=== PATIENT | male | born 2000 | race Two or more races ===

== ENCOUNTER 2025-10-12 22:17 | Emergency (ER) | payer MEDICAID, SELFPAY ==
[2025-10-12 23:05] VITALS: BP 147/82; PULSE 66; RESP 18; TEMP 36.8; O2SAT 99; BMI 27.5
--- NOTE | 2025-10-13 00:26 | PD.EDMALE ---
ED Male Genitalurinary RME/HPI General Chief complaint: Urogenital-Male Stated complaint: PAIN ON PRIVATE PARTS ITCHING Time Seen by Provider: 10/12/25 23:16 Arrival date/time: 10/12/25 22:17 25M with no significant PMH presents to ED with itching of penis for several days. There was recent new sexual contact. Patient went to PCP and had blood/urine tests done. Patient is just here because the itching is making him unable to sleep. Limitations: no limitations Related Data Previous Rx's ?Medication ?Instructions ?Recorded diphenhydramine HCl 2 % topical 1 applic topical BID PRN itching 10/12/25 gel (Itch Stopping #118 mL (diphenhydramine)) Allergies Allergy/AdvReac Type Severity Reaction Status Date / Time No Known Allergies Allergy Verified 10/12/25 22:21 Review of Systems Review of Systems Systems Reviewed: All systems reviewed, normal except as documented Genitourinary Genitourinary: Reports as per HPI and Reports other (genital itching) Past Medical History Social History SMOKING STATUS: Current every day smoker ED Exam General Limitations: Present no limitations General appearance: Present alert and in no apparent distress Head Head exam: Present atraumatic Neck Neck exam: Present normal inspection, full ROM and trachea midline Chest Chest inspection: Present normal inspection and symmetric chest wall rise Expanded Exam exam: Present erythema (around penis head) Neurological Exam Neurological exam: Present alert and oriented X3 Psychiatric Psychiatric exam: Present normal affect and normal mood Skin Skin exam: Present warm, dry, intact and normal color Course Quality Measures none Vital Signs Vital signs: Vital Signs Temperature 98.2 F 10/12/25 23:05 Pulse Rate 66 10/12/25 23:05 Respiratory Rate 18 10/12/25 23:05 Blood Pressure 147/82 H 10/12/25 23:05 Pulse Oximetry (%) 99 10/12/25 23:05 Oxygen Delivery Method Room Air 10/12/25 23:05 O2 at 99% on RA and WNLs Urogenital - Male MDM Narrative MDM Narrative:: 25M with no significant PMH presents to ED with itching of penis for several days. There was recent new sexual contact. Patient went to PCP and had blood/urine tests done. Patient is just here because the itching is making him unable to sleep. Physical exam with trash truck driver Kathyrn, customer service technician, reveals some redness around penis head area. No obvious discharge, rash, or ulcerations. Patient is afebrile, calm, and alert. Meds and marriage counselor given. Patient data External records reviewed:: None Clinical information provided by:: patient Social determinants that could affect healthcare access:: none Patient has the following chronic illnesses:: none How is presenting disease/condition affected by chronic disease/condition?: no chronic disease Evaluation data The following diagnostics were reviewed and interpreted by me:: other (specify) (none) Lab and/or radiology exams considered but not ordered:: not ordered Interpretation Summary: n/a Medications / Prescriptions Medications or Prescriptions considered but not ordered:: not ordered Medication administrations:: n/a Consultations Consultation(s) initiated? (list below): No Diagnosis Urogenital Male Differential Diagnosis: urinary tract infection, priapism, urethritis, epididymitis, genital herpes simplex, prostatitis, acute retention of urine, inguinal hernia and other (male concern for STD) Most likely diagnosis given after review of the tests above:: male concern for STD Admission Indicated Admission indicated?: not indicated Admission Request Was there a request for admission?: No Disposition Plan Disposition Plan: Discharge Discharge Attestation Discharge Attestation: The patient and all family members were given an opportunity to ask questions and understood the discharge instructions. Discharge instructions specifically effects, indications for sooner follow up or return to the emergency department, and the expected course of current diagnosis. Patient condition: Stable Discharge Plan Plan Patient Disposition: HOME (Self Care) Discharge Disposition comment: Stable Prescriptions/Referrals Prescriptions/Med Rec: New Itch Stopping(diphenhydramine) 2 % gel 1 applic topical BID PRN (Reason: itching) Qty: 118 0RF Problem List Clinical Impression: Concern about STD in male without diagnosis Patient/Caregiver Discharge Instructions Education Materials: Understanding STIs Additional Instructions: Please follow-up with PCP within 24-48 hours and return immediately if symptoms worsen. Follow-up with PCP for test results. Print Language: French Stand Alone Forms: Patient Portal Info Letter AKSHAT/ELISEO Supervising Physician OMI Supervising Physician: Dr. Prater
== END 2025-10-12 23:51 | disposition home or self-care (01) ==
LOC: SERX 10-13 03:10
PROVIDERS: Emergency Provider Emergency Medicine; PCP Family Medicine
DX: Z20.2 Contact with and (suspected) exposure to infections with a predominantly sexual mode of transmission (principal)
CPT/HCPCS: 99281

== ENCOUNTER 2025-10-27 12:08 | Emergency (ER) | payer MEDICAID, SELFPAY ==
--- NOTE | 2025-10-27 12:13 | EKG_ITS ---
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
[2025-10-27 12:18] VITALS: BP 178/94; PULSE 105; RESP 21; TEMP 36.6; O2SAT 100; BMI 27.8
[2025-10-27 12:50] LABS: Basophils # (Auto) 0.0 Thou/mm3 (0.0-0.2); Basophils % (Auto) 1 % (0-2.5); Eosinophils # (Auto) 0.1 Thou/mm3 (0.0-0.5); Eosinophils % (Auto) 1 % (0-10); Hematocrit 45.3 % (41.0-53.0); Hemoglobin 15.8 g/dL (13.5-16.0); Immature Granulocytes Auto 0.03 Thou/mm3 (0.00-0.00); Lymphocytes # (Auto) 1.3 Thou/mm3 (1.0-4.8); Lymphocytes % (Auto) 21 % (10-50); Mean Corpuscular HGB Conc 34.9 g/dl (31.0-37.0); Mean Corpuscular Hemoglobin 30.2 pg (25.0-35.0); Mean Corpuscular Volume 87 fL (80-100); Monocytes # (Auto) 0.5 Thou/mm3 (0.0-0.8); Monocytes % (Auto) 8 % (0-12); Neutrophils # (Auto) 4.3 Thou/mm3 (1.8-7.7); Neutrophils % (Auto) 69 % (37-80); Nucleated Red Blood Cell # 0.00 Thou/mm3 (0.00-0.00); Nucleated Red Blood Cell % 0 /100 WBC (0); Platelet Count 321 Thou/mm3 (140-440); RDW Standard Deviation 39.4 fL (35.1-43.9); Red Blood Count 5.24 Miln/mm3 (4.50-5.90); White Blood Count 6.2 Thou/mm3 (3.8-10.6)
[2025-10-27 13:14] LABS: Alanine Aminotransferase 51 U/L (10-49); Albumin, Serum 5.2 gm/dL (3.5-5.0); Albumin/Globulin Ratio 1.8 (1.2-2.2); Alkaline Phosphatase 79 U/L (46-116); Anion Gap 15 (7-16); Aspartate Amino Transferase 35 U/L (0-34); BUN/Creatinine Ratio 11 Ratio (12-20); Bilirubin,Total 0.6 mg/dL (0.3-1.2); Blood Urea Nitrogen 11 mg/dL (9-23); Calcium 9.5 mg/dL (8.3-10.6); Calcium (Corrected) 9.5 mg/dL (8.5-10.1); Carbon Dioxide 22.9 mMol/L (20.0-31.0); Chloride 102 mMol/L (98-107); Creatinine (Component) 1.0 mg/dL (0.6-1.3); Estimated Creatinine Clearance 112.9 mL/min (>60); Globulin 2.9 gm/dL (2.3-3.5); Glucose 173 mg/dL (74-106); Osmolality,Calculated 282 (275-295); Potassium 3.9 mMol/L (3.4-5.1); Sodium 140 mMol/L (136-145); Total Protein 8.1 gm/dL (5.7-8.2); Troponin I < 0.002 ng/mL (0.0-0.045); eGFR > 60 See Note
[2025-10-27 13:35] VITALS: BP 136/84; PULSE 79; RESP 19; O2SAT 99
[2025-10-27 13:57] LABS: Amphetamine/Methamp Scrn,U Positive (Negative); Barbiturate Screen,Urine Negative (Negative); Benzodiazepines Screen,Urine Negative (Negative); Benzoylecgonine Screen, Ur Negative (Negative); Fentanyl Screen,Urine Negative (Negative); Opiate Screen,Urine Negative (Negative); THC Screen,Urine Negative (Negative)
--- NOTE | 2025-10-27 14:11 | EDNOTE_ITS ---
ED Arrhythmia Palp. RME/HPI General Chief Complaint: Arrhythmia/Palpitations Stated Complaint: Palpitations did meth yesterday Time Seen by Provider: 10/27/25 12:18 Source: patient Arrival date/time: 10/27/25 12:08 Limitations: language barrier RIRIE / GINNY CAICEDO complaint: rapid heart beat RIRIE / HPI narrative: This patient is a 25-year-old Bulgarian-speaking only male who arrives to the ED today for evaluation of palpitations that started Hours. Patient States Symptoms Came on and Have Been Relatively Consistent. Patient States He Feels like He Has a Racing Heart. Patient's Medical History Significant for Recent Methamphetamine Use. Patient Was Initially Hypertensive, tachypneic and tachycardic. Related Data Previous Rx's ?Medication ?Instructions ?Recorded diphenhydramine HCl 2 % topical 1 applic topical BID P RN itching 10/12/25 gel (Itch Stopping #118 mL (diphenhydramine)) Allergies Allergy/AdvReac Type Severity Reaction Status Date / Time No Known Allergies Allergy Verified 10/27/25 12:11 Review of Systems Review of Systems Systems Reviewed: All systems reviewed, normal except as documented Past Medical History Past Medical History PSYCHO/SOCIAL: Positive Recreational Drug Use Social History SMOKING STATUS: Current every day smoker ED Exam General Limitations: Present language barrier General appearance: Present alert and other (Patient was in mild distress due to palpitation concerns. Patient still may be affected by methamphetamine use.) Head Head exam: Present atraumatic Eye Eye exam: Present normal appearance, PERRL and EOMI ENT ENT exam: Present normal exam, normal oropharynx and mucous membranes moist Neck Neck exam: Present normal inspection, full ROM and trachea midline Chest Chest inspection: Present normal inspection and symmetric chest wall rise Respiratory Respiratory exam: Present normal lung sounds bilaterally Cardiovascular Cardiovascular exam: Present normal rhythm, tachycardia and normal heart sounds Abdominal Exam Abdominal exam: Present soft and normal bowel sounds Extremities Exam Extremities exam: Present normal inspection and full ROM Back Exam Back exam: Present normal inspection and full ROM Neurological Exam Neurological exam: Present alert, oriented X3 and CN II-XII intact Psychiatric Psychiatric exam: Present normal affect and normal mood Skin Skin exam: Present warm, dry, intact and normal color Course Quality Measures none Orders Category Date Time Status EKG (ED ONLY) *Do not use* NOW Care 10/27/25 12:13 Completed EKG (ED Only) Stat Exams 10/27/25 12:13 Draft CBC Stat Lab 10/27/25 12:30 Completed CMP [Comprehensive Metabolic Panel] Stat Lab 10/27/25 12:30 Completed Drug Screen,Urine Stat Lab 10/27/25 12:56 Completed Troponin I Stat Lab 10/27/25 12:30 Completed Ketorolac Inj [Toradol Inj] Med 10/27/25 12:18 Discontinued 30 mg IM X1 ONE Vital Signs Vital signs: Vital Signs Temperature 97.8 F 10/27/25 12:18 Pulse Rate 105 H 10/27/25 12:18 Respiratory Rate 21 H 10/27/25 12:18 Blood Pressure 178/94 H 10/27/25 12:18 Pulse Oximetry (%) 100 10/27/25 12:18 Oxygen Delivery Method Room Air 10/27/25 12:18 Arrhythmia/Palpitations MDM Narrative MDM Narrative:: All studies performed the ED were evaluated by me personally. Serum studies are unremarkable for any systemic concerns including unremarkable cardiac markers. Patient's EKG revealed a sinus tachycardia with a rate of 105. Incomplete right bundle branch block was noted with possible right ventricular hypertrophy. [place] interval of 140 and QT interval 334. Patient appears to be suffering chest pain concerns based on his methamphetamine use. Advised patient to cease methamphetamine use immediately and follow-up with a support group such as Narcotics Anonymous. Patient data External records reviewed:: [facility] previous records Clinical information provided by:: patient Social determinants that could affect healthcare access:: substance use Patient has the following chronic illnesses:: None How is presenting disease/condition affected by chronic disease/condition?: no chronic disease Evaluation data The following diagnostics were reviewed and interpreted by me:: lab results, radiology exam(s) and EKG tracing(s) Lab and/or radiology exams considered but not ordered:: None Interpretation Summary: Unremarkable labs and EKG Medications / Prescriptions Medications or Prescriptions considered but not ordered:: None Medication administrations:: Medication Administration History Discontinued Medications Ketorolac Tromethamine (Ketorolac Inj 30 Mg/Ml Vial) 30 mg IM X1 ONE Stop: 10/27/25 12:19 Last Admin: 10/27/25 13:41 Dose: Not Given Documented By: Non-Admin Reason: Patient Refused Consultations Consultation(s) initiated? (list below): No Diagnosis Differential diagnosis arrhythmia/palpitations: palpitations, sinus tachycardia and other (Sepsis, electrolyte abnormality, methamphetamine use) Most likely diagnosis given after review of the tests above:: Methamphetamine use Admission Indicated Admission indicated?: not indicated Explain why admission is indicated or not indicated:: Unwarranted Admission Request Was there a request for admission?: No Disposition Plan Disposition Plan: Discharge Discharge Attestation Discharge Attestation: The patient and all family members were given an opportunity to ask questions and understood the discharge instructions. Discharge instructions specifically effects, indications for sooner follow up or return to the emergency department, and the expected course of current diagnosis. Patient condition: Stable Discharge Plan Plan Patient Disposition: HOME (Self Care) Prescriptions/Referrals Prescriptions/Med Rec: No Action Itch Stopping(diphenhydramine) 2 % gel 1 applic topical BID PRN (Reason: itching) Qty: 118 0RF Referrals: No Primary/Family,Physician [Primary Care Provider] - In 1 week Problem List Clinical Impression: Palpitations, Methamphetamine use Patient/Caregiver Discharge Instructions Education Materials: Understanding Methamphetamine ..., Understanding Heart Palpitations Additional Instructions: Advised patient to cease methamphetamine use immediately and follow-up with a support group such as Narcotics Anonymous. Patient should follow-up with primary care provider. Print Language: Bulgarian Stand Alone Forms: Ella Award Info., Patient Portal Info Letter
[2025-10-27 17:53] VITALS: BP 158/84; PULSE 80; RESP 19; TEMP 37; O2SAT 98
== END 2025-10-27 17:55 | disposition home or self-care (01) ==
PROVIDERS: Physician Assistant; Emergency Provider Family Medicine
DX: R00.2 Palpitations (principal); F15.90 Other stimulant use, unspecified, uncomplicated; R00.0 Tachycardia, unspecified; I45.10 Unspecified right bundle-branch block
CPT/HCPCS: 36415; 80053; 80307; 84484; 85025; 93005; 99282